=== PATIENT | male | born 1995 | race Caucasian/White ===

== ENCOUNTER 2017-02-11 17:09 | Emergency (ER) | payer BC, OTHER ==
[2017-02-11 17:24] VITALS: BP 163/95
[2017-02-11] MEDS ORDERED: KETOROLAC 60 MG/2 ML INJ. IM ONE (17:45)
[2017-02-11] MEDS ORDERED: DIPHTH,PERTUSS(ACELL),TET TOX 0.5 ML DISP.SYRIN. VAX IM ONE (17:45)
[2017-02-11] MEDS ORDERED: NEOMY/BACITR/POLYMYXIN OINT PACKET. TP ONE (18:30)
[2017-02-11] MEDS ORDERED: CEPH500T PO (18:52)
--- NOTE | 2017-02-11 18:52 | PHYS DOC ---
Past Medical History Past Medical History: No Pertinent History Past Surgical History: Other Additional Past Surgical Histo: LEFT KNEE Alcohol Use: Occasionally Drug Use: None Adult General Chief Complaint Chief Complaint: FOOT INJURY PAIN HPI HPI Patient is a 21 year old male who presents with right foot injury. Patient states at trailer filled with concrete fell on his right foot. Review of Systems Review of Systems Constitutional: Denies fever or chills [] Musculoskeletal: right foot injury Neurologic: Denies headache, focal weakness or sensory changes [] All other systems were reviewed and found to be within normal limits, except as documented in this note. Current Medications Current Medications Current Medications Medications (Trade) Dose Ordered Sig/Margie Start Time Stop Time Status Last Admin Dose Admin Diphtheria/ Tetanus/Acell Pertussis (Boostrix) 0.5 ml ONCE ONCE 02/11/17 17:45 02/11/17 17:46 DC 02/11/17 18:37 0.5 ML Ketorolac Tromethamine (Toradol Im) 60 mg 1X ONCE 02/11/17 17:45 02/11/17 17:46 DC 02/11/17 18:36 60 MG Neomycin/ Polymyxin/ Bacitracin (Triple Antibiotic Ointment) 1 pkt 1X ONCE 02/11/17 18:30 02/11/17 18:31 DC 02/11/17 18:30 1 PKT Allergies Allergies Allergies Coded Allergies Type Severity Reaction Last Updated Verified No Known Drug Allergies 02/11/17 No Physical Exam Physical Exam Constitutional: Well developed, well nourished, no acute distress, non-toxic appearance. [] Skin: Please see extremity Back: Right foot with moderate swelling and bruising on top of the foot. Tenderness on palpation of the right foot along the second and third and fourth metatarsal. Limited range of motion to the right foot due to pain. A full range of motion to the right toes. +2 right pedal pulse. Cap refill <2 seconds to the left foot. Extremities: No tenderness, no cyanosis, no clubbing, ROM intact, no edema. [] Neurologic: Alert and oriented X 3, normal motor function, normal sensory function, no focal deficits noted. [] Psychologic: Affect normal, judgement normal, mood normal. [] Current Patient Data Vital Signs Vital Signs Date Time Temp Pulse Resp B/P (MAP) Pulse Ox O2 Delivery O2 Flow Rate FiO2 02/11/17 17:24 99.2 91 18 96 Room Air 99.2 EKG EKG [] Radiology/Procedures Radiology/Procedures [] Course & Med Decision Making Course & Med Decision Making Pertinent Labs and Imaging studies reviewed. (See chart for details) Patient is in the ED with right foot injury. Right foot x-rays interpreted by Dr. Montanez were positive for third metatarsal fracture. Patient did have some open bruises on top of the foot. He was given tetanus injection as well as discharged with cephalexin. He was placed in a posterior leg splint by the food technologist. Neurovascular exam done by me post splinting is normal. Follow-up with orthopedic doctor by calling the office tomorrow. Ice elevation encouraged. Dragon Disclaimer Dragon Disclaimer This electronic medical record was generated, in whole or in part, using a voice recognition dictation system. Departure Departure Impression: Primary Impression: Foot fracture, right Disposition: HOME, SELF-CARE Condition: STABLE Referrals: NON,STAFF (PCP) YOJANA CHRISTOPHER MD call your orthopedic doctor tomorrow morning for follow up appointment Patient Instructions: Foot Fracture-Brief Additional Instructions: You have right third metatarsal fracture. Call the provided orthopedic doctor or your own orthopedic doctor tomorrow to set up a follow-up appointment. Ice elevate the extremity. We put you on antibiotics because of open wounds on the top of the broken foot. Take the antibiotics to completion. Scripts Cephalexin (CEPHALEXIN) 500 Mg Tablet 1 TAB PO QID, #40 TAB Prov: KATHERINE BUCIO ARIANNA 02/11/17 Problem Qualifiers Primary Impression: Foot fracture, right Encounter type: initial encounter Fracture type: open Qualified Codes: S92.901B - Unspecified fracture of right foot, initial encounter for open fracture KATHERINE BUCIO AWNING FINISHER Feb 11, 2017 18:52
--- NOTE | 2017-02-12 08:46 | RAD ---
3 views right foot radiograph 02/11/2017 Clinical indication: Right foot pain. Comparison: None. Findings: There is a mildly comminuted nondisplaced fracture at the base of the third metatarsal with no definite intra-articular extension. No definite evidence of extension to the Lisfranc articulation. Normal bony alignment. There is moderate soft tissue swelling most prominent at the mid foot dorsally. Impression: Nondisplaced mildly comminuted fracture at the base of the third metatarsal with no definitive evidence for intra-articular extension or involvement of the Lisfranc articulation. Clinical correlation is recommended and if further evaluation is clinically indicated, CT could be performed.
== END 2017-02-11 18:57 | disposition home or self-care (01) ==
LOC: ER 17:09
DX: S92.901A Unspecified fracture of right foot, initial encounter for closed fracture (principal); W20.8XXA Other cause of strike by thrown, projected or falling object, initial encounter; Y93.89 Activity, other specified; Y99.8 Other external cause status; Y92.89 Other specified places as the place of occurrence of the external cause
CPT/HCPCS: 73630; 90471; 90715; 96372; 99284; J1885